=== PATIENT | female | born 1940 | race Caucasian/White ===

== ENCOUNTER 2023-01-31 17:57 | Inpatient (IN) | payer MEDICARE ==
[~2023-01-31] VITALS: Ht 162.6 cm; Wt 59.1 kg
[2023-01-31 02:54] VITALS: BP 179/66; PULSE 64; RESP 20; TEMP 98.6; O2SAT 96
[2023-01-31 21:47] VITALS: BP 179/66; PULSE 69; RESP 18; TEMP 98.2; O2SAT 94
[2023-01-31] MEDS ORDERED: ACETAMINOPHEN 325 MG TAB PO PRN (22:15)
[2023-01-31] MEDS ORDERED: BACLOFEN 10 MG TAB PO PRN (22:15)
[2023-01-31] MEDS ORDERED: ONDANSETRON HCL 4 MG/2 ML VIAL IV PRN (22:15)
[2023-01-31] MEDS: cefTRIAXone 1GM/50ML D5W 50 ML IV SCH (22:32)
[2023-01-31 22:54] VITALS: BP 160/64; PULSE 57; RESP 18
[2023-01-31] MEDS: TEMAZEPAM 15 MG CAP PO PRN (22:57)
[2023-02-01] VITALS (13 sets, daily range): BP systolic 88–211; BP diastolic 41–84; PULSE 50–92; RESP 11–22; TEMP 97–98.2; O2SAT 90–97
[2023-02-01] MEDS: cloNIDine HCL 0.1 MG TAB PO PRN ×2 (02:33→10:55)
[2023-02-01] MEDS ORDERED: GABA-339 PO (04:22)
[2023-02-01] MEDS ORDERED: ATOR40TA52 PO (04:22)
[2023-02-01] MEDS ORDERED: HYDR-4297 PO (04:22)
[2023-02-01] MEDS ORDERED: MECL-126 PO (04:22)
[2023-02-01] MEDS ORDERED: BACL10TA PO (04:22)
[2023-02-01] MEDS ORDERED: DONE1TAB88 PO (04:22)
[2023-02-01] MEDS ORDERED: SACU1TAB7 PO (04:22)
[2023-02-01 06:44] LABS: Albumin 3.1 g/dL (3.4-5.0); Calcium 8.4 mg/dL (8.5-10.1); Potassium 3.9 mmol/L (3.5-5.1)
[2023-02-01 06:48] LABS: BUN/Creatinine Ratio 13.3 (10.0-20.0); Bilirubin, Total 0.5 mg/dL (0.2-1.0)
[2023-02-01 06:55] LABS: INR 1.19 (0.9-1.15); Partial Thromboplastin Time 41.2 SEC (24.5-34.5); Prothrombin Time 12.4 sec (9.3-11.8)
[2023-02-01 06:59] LABS: Basophils # (auto) 0 10 ^3/uL (0-0.2); Basophils % (auto) 0.9 % (0.0-2.0); Eosinophils # (auto) 0.2 10 ^3/uL (0-0.8); Eosinophils % (auto) 4.9 % (0.0-7.0); Hematocrit 32.7 % (36.0-46.0); Hemoglobin 10.9 g/dL (12.2-16.2); Lymphocytes # (auto) 1.5 10 ^3/uL (0.4-5.4); Lymphocytes % (auto) 41.5 % (10.0-50.0); Mean Corpuscular Hemoglobin 28.1 pg (28.0-32.0); Mean Corpuscular Hgb Conc. 33.2 g/dL (32.0-36.0); Mean Corpuscular Volume 84.4 fL (80.0-100.0); Monocytes # (auto) 0.3 10 ^3/uL (0-1.3); Monocytes % (auto) 9.1 % (0.0-12.0); Neutrophils # (auto) 1.6 10 ^3/uL (1.6-8.6); Neutrophils % (auto) 43.6 % (37.0-80.0); Nucleated Red Blood Cells % 0.2 %; Red Blood Cells 3.87 10^6/uL (4.0-5.20); Red Cell Distribution Width 14.3 % (11.8-14.3); White Blood Cell 3.7 10^3/uL (4.4-10.8)
[2023-02-01] MEDS: busPIRone HCL 10 MG TAB PO SCH ×3 (07:13→21:24)
[2023-02-01] MEDS: HYDROcodone-ACET 5/325MG TAB PO PRN ×2 (07:13→17:23)
[2023-02-01] MEDS: CLOPIDOGREL BISULFATE 75 MG TAB PO SCH (09:43)
[2023-02-01] MEDS ORDERED: SACUBITRIL-VALSARTAN 24mg/26mg TAB PO SCH (10:00)
[2023-02-01] MEDS ORDERED: IOHEXOL 350 MG/ML 100ML IJ ONE (13:17)
[2023-02-01] MEDS ORDERED: LIDOCAINE 2%HCL (LOCAL ANESTH.) INJ 20ML MDV ONE (13:17)
[2023-02-01] MEDS ORDERED: ANGIOMAX 250 MG VIAL IV ONE (13:21)
[2023-02-01] MEDS ORDERED: HEPARIN SODIUM (PORCINE) 5000 UNITS/ML 1ML VIAL ONE (13:21)
[2023-02-01] MEDS ORDERED: MIDAZOLAM HCL 2MG/2ML 2ml VIAL (1mg/ml) ONE (13:21)
[2023-02-01] MEDS ORDERED: SODIUM CHL 0.9% 50 ML ONE (13:21)
[2023-02-01] MEDS ORDERED: fentaNYL CITRATE 100 MCG/2 ML VL ONE ×2 (13:21→14:25)
[2023-02-01] MEDS ORDERED: NITROGLYCERIN 0.4MG/DOSE SPRAY 4.9GM ONE (13:31)
[2023-02-01] MEDS ORDERED: IODIXANOL 320MG/ML 100ML BTL IV ONE (13:47)
[2023-02-01] MEDS ORDERED: ENALAPRILAT 1.25 MG/ML-1ML VIAL IV ONE (13:57)
[2023-02-01] MEDS ORDERED: CLOPIDOGREL 300 MG TAB ONE (14:01)
[2023-02-01] MEDS ORDERED: hydrALAZINE HCL 20 MG/ML VL ONE (14:05)
[2023-02-01] MEDS: cefTRIAXone 1GM/50ML D5W 50 ML IV SCH (20:56)
[2023-02-01] MEDS: SACUBITRIL-VALSARTAN 24mg/26mg TAB PO SCH (21:23)
[2023-02-01] MEDS ORDERED: ATORVASTATIN 20 MG TAB PO SCH (22:00)
[2023-02-01] MEDS ORDERED: DONEPEZIL HYDROCHLORIDE 5 MG TAB PO SCH (22:00)
[2023-02-01] MEDS: TEMAZEPAM 15 MG CAP PO PRN (23:48)
[2023-02-02] MEDS: HYDROcodone-ACET 5/325MG TAB PO PRN ×2 (04:39→14:12)
[2023-02-02] MEDS: cloNIDine HCL 0.1 MG TAB PO PRN (04:40)
[2023-02-02 05:00] VITALS: BP 181/68; PULSE 68; RESP 18; TEMP 98.2; O2SAT 100
[2023-02-02] MEDS: SACUBITRIL-VALSARTAN 24mg/26mg TAB PO SCH ×2 (06:08→14:12)
[2023-02-02] MEDS: busPIRone HCL 10 MG TAB PO SCH ×2 (06:12→14:12)
[2023-02-02 08:15] VITALS: PULSE 54; O2SAT 93
[2023-02-02 08:51] VITALS: BP 89/56; PULSE 59; RESP 16; TEMP 97.9; O2SAT 93
[2023-02-02] MEDS: CLOPIDOGREL BISULFATE 75 MG TAB PO SCH (09:42)
[2023-02-02 13:03] VITALS: BP 184/71; PULSE 69; RESP 15; TEMP 97.9; O2SAT 94
== END 2023-02-02 15:30 | disposition home health service (06) | DRG 249 ==
LOC: TELE-EAST 21:25
PROVIDERS: ADMIT Internal Medicine Cardiovascular Disease; ATTEND Internal Medicine Cardiovascular Disease
PROC: B41D1ZZ Fluoroscopy of Aorta and Bilateral Lower Extremity Arteries using Low Osmolar Contrast (ICD-10-PCS; principal; 2023-02-01)
PROC: B4181ZZ Fluoroscopy of Bilateral Renal Arteries using Low Osmolar Contrast (ICD-10-PCS; 2023-02-01)
PROC: 02703DZ Dilation of Coronary Artery, One Artery with Intraluminal Device, Percutaneous Approach (ICD-10-PCS; 2023-02-02)
PROC: 4A023N7 Measurement of Cardiac Sampling and Pressure, Left Heart, Percutaneous Approach (ICD-10-PCS; 2023-02-02)
PROC: B2111ZZ Fluoroscopy of Multiple Coronary Arteries using Low Osmolar Contrast (ICD-10-PCS; 2023-02-02)
PROC: B2151ZZ Fluoroscopy of Left Heart using Low Osmolar Contrast (ICD-10-PCS; 2023-02-02)
PROC: 4A033BC Measurement of Arterial Pressure, Coronary, Percutaneous Approach (ICD-10-PCS; 2023-02-02)
DX: I25.10 Atherosclerotic heart disease of native coronary artery without angina pectoris (principal); I10 Essential (primary) hypertension; E78.5 Hyperlipidemia, unspecified; I73.9 Peripheral vascular disease, unspecified; Z98.61 Coronary angioplasty status
CPT/HCPCS: 36252; 36415; 71045; 75716; 80053; 84702; 85025; 85610; 85730; 86850; 86900; 86901; 87081; 92928; 93005; 93458; 93571; 99152; 99153; G0378; J0696; J2250; Q9967

== ENCOUNTER → 2023-02-28 | Outpatient (CLI) | payer MEDICARE, BC ==
[~2023-02-28] MED LIST: ATOR40TA52 PO; BACL10TA PO; DONE1TAB88 PO; GABA-339 PO; HYDR-4297 PO; MECL-126 PO; SACU1TAB7 PO
== END | disposition home or self-care (01) ==
LOC: Rad HDHVI 10:22
PROVIDERS: ATTEND Internal Medicine Cardiovascular Disease
DX: M25.461 Effusion, right knee (principal); M25.561 Pain in right knee
CPT/HCPCS: 73700